=== PATIENT | female | born 1970 | race Caucasian/White ===

== ENCOUNTER 2022-02-27 13:47 | Emergency (ER) | payer OTHER, SELFPAY ==
[2022-02-27 13:59] VITALS: BP 153/107; PULSE 109; RESP 18; O2SAT 99
--- NOTE | 2022-02-27 13:59 | ECG_ITS ---
[facility] Test Date: 2022-02-27 Pat Name: Natalie Whitfield Department: Room: Gender: Female Inside Technical Sales Representative: : 1970 Requested By: Milton Granger Order Number: [id number] Sinan MD: Kelton Francois M.D. Measurements Intervals [place] Rate: 98 P: 50 OK: 159 QRS: 58 QRSD: 84 T: 66 QT: 334 QTc: 428 Interpretive Statements SINUS RHYTHM POSSIBLE RIGHT VENTRICULAR CONDUCTION DELAY [RSR (QR) IN V1/V2] No previous ECG available for comparison Electronically Signed On 02-27-2022 15:17:33 CDT by Kelton Francois M.D. [email or web address]
--- NOTE | 2022-02-27 14:02 | ED_ITS ---
HPI - Abdominal Pain General: Chief Complaint: Abdominal Pain Stated Complaint: abd pain upper left side Time Seen by Provider: 02/27/22 13:59 Source: patient Mode of arrival: ambulatory Limitations: no limitations History of Present Illness: 51-year-old female presents emergency room planing nausea constipation with left upper quadrant abdominal pain for the last week. No fever sweats or chills has a lot of cramping also states she has been very constipated she did have small bowel movement this morning. She noticed dark stools she has been taking large number of NSAIDs for osteoarthritic complaints. She denies any bright red blood per rectum or vomited any blood or any had any coffee-ground emesis. MD elicited complaint: abdominal pain Quality: cramping Radiation: none Exacerbating factors: nothing Relieving factors: nothing Associated Symptoms: Denies anorexia, belching, bloating, change in bowel habits, change in stool character, chills, coffee ground emesis, constipation, GI cramping, diarrhea, dyspepsia, dysuria, excessive flatus, fever(s), heartburn, hematochezia, hematuria, hematemesis, fecal incontinence, loose stools, melena, nausea, poor appetite, syncope and vomiting Review of Systems Const: Denies: fever(s) or chills ENMT: Denies: throat pain, ear or mastoid pain, nasal discharge or nasal con gestion Card: Reports: chest pain; Denies: palpitations, irregular heart rhythm or syncope Resp: Denies: dyspnea, productive cough or non-productive cough GI: Denies: abdominal pain, nausea, vomiting, hematemesis, coffee ground emesis, heartburn, diarrhea, constipation, bloating, GI cramping, belching, excessive flatus, fecal incontinence, change in bowel habits, change in stool character, hematochezia or melena : Denies: flank pain, difficulty voiding, dysuria or hematuria Skin/Breast: Denies: rash or pruritus PFSH ED PFSH: Surgical History History of appendectomy History of delivery History of cholecystectomy History of rhinoplasty Social History Smoking and tobacco status: never smoked Physical Exam Const: GENERAL APPEARANCE: cooperative and comfortable ORIENTATION/CONSCIOUSNESS: Yes awake, Yes oriented to person, Yes oriented to place and Yes oriented to time HENMT: COMMON NORMALS: normocephalic, atraumatic and hearing grossly normal bilaterally HEAD & SCALP: normocephalic and atraumatic Neck/C-Spine: COMMON NORMALS: no JVD Resp: COMMON NORMALS: normal respiratory effort, No retractions, No use of accessory muscles and clear to auscultation bilaterally AUSCULTATION: clear to auscultation bilaterally Cardio: COMMON NORMALS: no JVD, regular rate, regular rhythm and No murmurs present (Cardio) RATE: regular rate RHYTHM: regular rhythm GI: COMMON NORMALS: No hepatosplenomegaly present AUSCULTATION: Yes normoactive bowel sounds PALPATION: Yes Tenderness to palpation present (GI) Details: LUQ, No Guarding due to palpation present (GI) and Yes No hepatosplenomegaly present Extremity: COMMON NORMALS: normal to inspection, capillary refill normal, no clubbing, cyanosis or edema, no calf tenderness and no pedal edema Neuro: SENSORIUM/ORIENTATION: Yes oriented to person, Yes oriented to place and Yes oriented to time Skin: COMMON NORMALS: no rashes or lesions noted GENERAL SKIN EXAM: no rashes or lesions noted Course Vital Signs: Vital signs: Vital Signs Pulse Rate 101 H 02/27/22 17:02 Respiratory Rate 18 02/27/22 19:51 Blood Pressure 149/92 02/27/22 17:02 Pulse Oximetry 98 02/27/22 19:51 MDM - Abdominal Pain Medical Decision Making Soft tissue mass causing gastric outlet obstruction. I discussed with Dr. Braswell. He did not feel this was within his scope of practice nor do we have the appropriate resources at our facility to manage this problem. While he felt he could do the EGD regardless of the findings on EGD biopsy this would have to be resected which was not something he felt could be managed at our facility. Called several other facilities ultimately were able to find a bed at [facility]. Dr. Choudhary will accept the patient and consult surgery. I discussed the findings with the patient and reviewed the labs and imaging. Patient transferred in good condition with an NG in place. Medical Records I reviewed the patient's medical records. Lab Data I reviewed the patient's lab results. : 02/27/22 14:06 02/27/22 13:48 Labs/Radiology: Radiology Impressions Abdomen/Pelvis CT 02/27/22 14:36 IMPRESSION: 1. Marked fluid distention of the stomach with soft tissue mass containing fat obstructing the antrum/pylorus of the stomach. There is marked wall thickening with the fat-containing mass which may be partially intussuscepting. Upper endoscopy recommended to better evaluate the mass. Differential includes a fat- containing tumor/lipoma. Less likely a liposarcoma. Soft tissue mass extends over length of 5.3 cm. There are a few small adjacent lymph nodes which may be reactive or neoplastic. 2. Prior cholecystectomy. 3. No adenopathy. Notified Milton Haney DO at 02/27/2022 3:44 PM. Chest X-Ray 02/27/22 16:52 IMPRESSION: Satisfactory NG tube position. Laboratory Results WBC 12.0 10^3/uL (4.0-10.0) H 02/27/22 14:06 RBC 4.07 10^6/uL (4.1-5.3) L 02/27/22 14:06 Hgb 12.4 g/dL (11.5-15.3) 02/27/22 14:06 Hct 36.4 % (37.0-47.0) L 02/27/22 14:06 MCV 89.4 fl (81-99) 02/27/22 14:06 MCH 30.5 pg (28.0-34.0) 02/27/22 14:06 MCHC 34.1 g/dL (30.0-36.0) 02/27/22 14:06 RDW 12.7 % (12.1-15.1) 02/27/22 14:06 Plt Count 453 10^3/cmm (130-400) H 02/27/22 14:06 MPV 10.4 fL (7.4-10.4) 02/27/22 14:06 Neut % (Auto) 74.7 % 02/27/22 14:06 Lymph % (Auto) 18.2 % 02/27/22 14:06 [place] % (Auto) 5.1 % 02/27/22 14:06 Eos % (Auto) 1.4 % 02/27/22 14:06 Baso % (Auto) 0.4 % 02/27/22 14:06 Neut # (Auto) 8.98 10^3/uL (1.8-7.7) H 02/27/22 14:06 Lymph # (Auto) 2.2 10^3/uL (0.8-4.8) 02/27/22 14:06 [place] # (Auto) 0.6 10^3/uL (0.2-0.9) 02/27/22 14:06 Eos # (Auto) 0.2 10^3/uL (0.0-0.8) 02/27/22 14:06 Baso # (Auto) 0.1 10^3/uL (0.0-0.1) 02/27/22 14:06 Nucleated RBC % (auto) 0 % 02/27/22 14:06 Nucleated RBCs # 0.0 /100WBC 02/27/22 14:06 Sodium Cancelled 02/27/22 14:06 Potassium Cancelled 02/27/22 14:06 Chloride Cancelled 02/27/22 14:06 Carbon Dioxide Cancelled 02/27/22 14:06 Anion Gap Cancelled 02/27/22 14:06 BUN Cancelled 02/27/22 14:06 Creatinine Cancelled 02/27/22 14:06 GFR Calculation Cancelled 02/27/22 14:06 Glucose Cancelled 02/27/22 14:06 Calculated Osmolality Cancelled 02/27/22 14:06 Calcium Cancelled 02/27/22 14:06 Total Bilirubin Cancelled 02/27/22 14:06 AST Cancelled 02/27/22 14:06 ALT Cancelled 02/27/22 14:06 Alkaline Phosphatase Cancelled 02/27/22 14:06 Total Protein Cancelled 02/27/22 14:06 Albumin Cancelled 02/27/22 14:06 Globulin Cancelled 02/27/22 14:06 Lipase Cancelled 02/27/22 14:06 Urine Color Yellow (Yellow) 02/27/22 16:00 Urine Appearance Clear (CLEAR) 02/27/22 16:00 Urine pH 5 (5-7) 02/27/22 16:00 Ur Specific [place] 1.020 (1.005-1.030) 02/27/22 16:00 Urine Protein Neg (Negative) 02/27/22 16:00 Urine Glucose (UA) Norm (Normal) 02/27/22 16:00 Urine Ketones 3+ (Negative) H 02/27/22 16:00 Urine Blood 2+ (Negative) H 02/27/22 16:00 Urine Nitrate Negative (Negative) 02/27/22 16:00 Urine Bilirubin Neg (Negative) 02/27/22 16:00 Urine Urobilinogen Norm mg/dL (Negative) 02/27/22 16:00 Ur Leukocyte Esterase Negative (Negative) 02/27/22 16:00 Urine RBC 0-4 /hpf (0-2) H 02/27/22 16:00 Urine WBC 0-4 /hpf (0-5) H 02/27/22 16:00 Ur Squamous Epith Cells 0-4 /hpf (0-5) H 02/27/22 16:00 Amorphous Sediment Not Reportable 02/27/22 16:00 Urine Bacteria None /hpf (NONE) 02/27/22 16:00 Discharge Plan Discharge Patient Disposition: Xfer Short-Term Hosp Clinical Impression: Gastric outlet obstruction Condition: Stable Referrals: Chuy Hollins DO [Primary Care Provider] - Coding Level of Care Code ED Dress Fitter for Chg Fwd Exam Comprehensive
--- NOTE | 2022-02-27 14:22 | PC.NURSE ---
PT PLACED ON CONTINUOUS NIBP, SPO2, AND CM
[2022-02-27 14:29] LABS: Basophils # 0.1 10^3/uL (0.0-0.1); Basophils % 0.4 %; Eosinophils # 0.2 10^3/uL (0.0-0.8); Eosinophils % 1.4 %; Hematocrit 36.4 % (37.0-47.0); Hemoglobin 12.4 g/dL (11.5-15.3); Lymphocytes # 2.2 10^3/uL (0.8-4.8); Lymphocytes % 18.2 %; Mean Corpuscular HGB Conc 34.1 g/dL (30.0-36.0); Mean Corpuscular Hemoglobin 30.5 pg (28.0-34.0); Mean Corpuscular Volume 89.4 fl (81-99); Mean Platelet Volume 10.4 fL (7.4-10.4); Monocytes # 0.6 10^3/uL (0.2-0.9); Monocytes % 5.1 %; Neutrophils # 8.98 10^3/uL (1.8-7.7); Neutrophils % 74.7 %; Nucleated Red Blood Cells % 0 %; Platelet Count 453 10^3/cmm (130-400); Red Blood Count 4.07 10^6/uL (4.1-5.3); Red Cell Distribution Width 12.7 % (12.1-15.1)
--- NOTE | 2022-02-27 14:36 | CT_ITS ---
WS: [id number] CT ABDOMEN AND PELVIS NONCONTRAST HISTORY: Abdominal pain TECHNIQUE: Imaging performed through the abdomen and pelvis. Coronal and sagittal reformats are submi tted. All CT scans at [facility] use at least one of these dose optimization techniques: auto mated exposure control; mA and/or kV adjustment per patient size (includes targeted exams where dose is matched to clinical indication); or iterative reconstruction. DLP: 1254.24 mGy.cm COMPARISON: None available. Lower thorax: Lung bases are clear. Visualized heart is normal. No hiatal hernia. Liver: Normal size liver. No mass or bile duct dilatation. Gallbladder: Prior cholecystectomy. Pancreas: Normal size and attenuation. Normal pancreatic duct. No pancreatitis or mass. Spleen: Normal. Adrenal glands: Normal. No mass. Right kidney: Normal size kidney with no mass or hydronephrosis. Left kidney: Normal size kidney with obstructing calcifications. Aorta: Mild atherosclerosis abdominal aorta with no aneurysm. No free fluid or free air. GI tract: Appendix is been removed. There is marked distention of the stomach with fluid. Obstruction is to the level of the cyst antrum of the stomach at the antrum there is marked circumferential soft tissue thickening with a fat-containing mass which may be causing an intussusception and adjacent in flammation. There is a high-grade stenosis involving the antrum and pylorus of the stomach. Suspect t here may be a polypoid mass intussuscepted into the antrum. Marked soft tissue thickening. No perfora tion at this time. No small bowel obstruction. There are several small lymph nodes adjacent to the an trum of the stomach and the duodenum which are likely related to the acute process at the stomach ant rum. Abdominal wall: Negative. No hernia. Pelvis: Well-distended urinary bladder. No free fluid. Osseous structures: Unremarkable. CT/CT abdomen pelvis wo con [id number] IMPRESSION: 1. Marked fluid distention of the stomach with soft tissue mass containing fat obstructing the antrum/pylorus of the stomach. There is marked wall thickening with the fat-containing mass which may be partially intussuscepting. Upper end oscopy recommended to better evaluate the mass. Differential includes a fat-con taining tumor/lipoma. Less likely a liposarcoma. Soft tissue mass extends over length of 5.3 cm. There are a few small adjacent lymph nodes which may be react ashley or neoplastic. 2. Prior cholecystectomy. 3. No adenopathy. Notified Milton Haney DO at 02/27/2022 3:44 PM.
[2022-02-27 15:32] VITALS: BP 138/93; O2SAT 98
[2022-02-27 15:49] LABS: Alanine Aminotransferase 24 U/L (0-33); Albumin Level 3.8 g/dL (3.5-5.2); Alkaline Phosphatase 107 IU/L (35-105); Anion Gap 18.1 (5-19); Aspartate Amino Transferase 23 U/L (0-32); Blood Urea Nitrogen 18 mg/dL (6-20); Calcium 9.6 mg/dL (8.5-10.5); Carbon Dioxide 23 mmol/L (22-29); Chloride 99 mmol/L (98-107); Globulin 3.3 g/dL (1.3-4.6); Glomerular Filtration Rate 65.8 mL/min (90-130); Glucose 83 mg/dL (65-115); Lipase 36 U/L (13-60); Osmolality Calculated 283 mOsm/kg (285-295); Potassium 4.1 mmol/L (3.5-5.1); Sodium 136 mmol/L (136-145); Total Bilirubin 0.2 mg/dL (0.15-1.2); Total Protein 7.1 g/dL (6.6-8.7)
[2022-02-27 15:57] VITALS: RESP 16; O2SAT 98
[2022-02-27] MEDS: diphenhydrAMINE 50 mg/mL SDV 1mL IVP (15:57)
[2022-02-27] MEDS: morphine 4 mg/mL SDV 1 mL IVP (15:57)
[2022-02-27] MEDS: ondansetron 2 mg/ML SDV 2 mL 4 MG IVP ×2 (15:57→19:51)
[2022-02-27 16:02] VITALS: BP 129/83; O2SAT 97
--- NOTE | 2022-02-27 16:52 | XRR_ITS ---
PROCEDURE INFORMATION: Exam: XR Chest Exam date and time: 02/27/2022 4:59 PM Age: 51 years old Clinical indication: Device placement; Ng tube; Additional info: Tube placement, ng tube placement TECHNIQUE: Imaging protocol: Radiologic exam of the chest. Views: 1 view. COMPARISON: CT abdomen pelvis con [id number] 02/27/2022 3:22 PM FINDINGS: Tubes, catheters and devices: The nasogastric tube is appropriately positioned with the tip in the stomach, well beyond the diaphragmatic hiatus. Lungs: Lungs are clear. Pleural spaces: There is no pleural effusion or pneumothorax. Heart/Mediastinum: Cardiomediastinal contours are unremarkable. Bones/joints: Bones are unremarkable. XR/XR chest 1V portable [id number] IMPRESSION: Satisfactory NG tube position.
[2022-02-27 17:02] VITALS: BP 149/92; PULSE 101; RESP 12; O2SAT 99
[2022-02-27] MEDS: cetacaine Spray 5 gm Can 1 SPRAY TOPICAL (17:22)
[2022-02-27] MEDS: pantoprazole 40 mg SDV IVP (17:53)
[2022-02-27] MEDS: sodium chloride 0.9% 1,000 ML 999 ML IV ×2 (17:53→19:11)
--- NOTE | 2022-02-27 18:03 | PC.NURSE ---
NG tube placed to suction, intermittent suction not an option on this setup. 600ml alayna colored liquid return, suction turned off.
[2022-02-27 19:10] LABS: Add Urine Microscopic? YES; Bilirubin Urine Neg (Negative); Blood Urine 2+ (Negative); Glucose Urine UA Norm (Normal); Ketones Urine 3+ (Negative); Leukocyte Esterase Urine Negative (Negative); Nitrate Urine Negative (Negative); Protein Urine Neg (Negative); Urine Appearance Clear (CLEAR); Urine Color Yellow (Yellow); Urobilinogen Urine Norm (Negative); pH Urine 5 (5-7)
[2022-02-27 19:11] LABS: Add Urine Culture? No; RBC Urine 0-4 /hpf (0-2); Squamous Epithelial Cell Urine 0-4 /hpf (0-5); WBC Urine 0-4 /hpf (0-5)
[2022-02-27 19:51] VITALS: RESP 18; O2SAT 98
[2022-02-27] MEDS: HYDROmorphone 1 mg/mL INJ 1 mL 0.5 MG IVP (19:51)
== END 2022-02-27 19:55 | disposition short-term general hospital (02) ==
PROVIDERS: Emergency Provider Family Medicine; PCP Family Medicine
DX: K31.1 Adult hypertrophic pyloric stenosis (principal)
CPT/HCPCS: 71045; 74176; 80053; 81001; 83690; 85025; 93005; 96361; 96374; 96375; 96376; 99285; C9113; J1170; J1200; J2270; J2405; J7030

== ENCOUNTER 2023-02-19 22:34 | Emergency (ER) | payer OTHER, SELFPAY ==
--- NOTE | 2023-02-19 22:35 | XRR_ITS ---
PROCEDURE INFORMATION: Exam: XR Right Knee Exam date and time: 02/19/2023 10:50 PM Age: 52 years old Clinical indication: Pain; Knee; Right; Prior surgery; Surgery date: 6+ months; Surgery type: Scope; Additional info: Injury TECHNIQUE: Imaging protocol: Radiologic exam of the right knee. Views: 3 views. COMPARISON: No relevant prior studies available. FINDINGS: Bones/joints: Leal-st-byhhzuij tricompartmental osteoarthritis of the knee. Small to moderate knee joint effusion. Soft tissues: Normal. XR/XR knee RT 3V* [id number] IMPRESSION: 1. Oifb-co-rnyyllxz tricompartmental osteoarthritis of the knee. 2. Small to moderate knee joint effusion.
[2023-02-19 22:39] VITALS: BP 150/97; PULSE 92; RESP 18; TEMP 36.1; O2SAT 96; BMI 25.0
[2023-02-19 22:46] VITALS: BP 134/94; RESP 16; O2SAT 97
--- NOTE | 2023-02-19 22:47 | ED_ITS ---
HPI - Extremity Problem General: Chief complaint: Extremity Injury, Lower Stated complaint: Right knee injury Time Seen by Provider: 02/19/23 22:40 History of Present Illness: 52-year-old female comes in today with injury to the right knee. Patient reports that she was walking into her mother's bedroom when she felt a sudden sharp pain in her right knee. Since then patient has had difficulty with bearing weight to the right knee. Patient does have some noticeable swelling to the anterior knee. Associated symptoms: Deny chest pain Review of Systems General: Reports: 10 or more systems reviewed and unremarkable except in HPI and below Card: Denies: chest pain Resp: Denies: dyspnea Musc: Reports: joint pain (Right knee) PFS ED PFSH: Surgical History History of appendectomy History of delivery History of cholecystectomy History of rhinoplasty Social History Smoking and tobacco status: never smoked Physical Exam Const: COMMON NORMALS: alert HENMT: COMMON NORMALS: normocephalic HEAD & SCALP: normocephalic Neck/C-Spine: COMMON NORMALS: full ROM Resp: COMMON NORMALS: clear to auscultation bilaterally AUSCULTATION: clear to auscultation bilaterally Cardio: COMMON NORMALS: regular rate RATE: regular rate Extremity: RIGHT LOWER EXTREMITY: Yes knee joint (Anterior knee joint swelling, no redness, decreased range of motion due to ) Right knee: Yes inspection, Yes palpation and Yes ROM Neuro: SENSORIUM/ORIENTATION: Yes alert Course Vital Signs: Vital signs: Vital Signs Temperature 97 F L 02/19/23 22:39 Pulse Rate 92 02/19/23 22:39 Respiratory Rate 18 02/19/23 22:39 Blood Pressure 150/97 02/19/23 22:39 Pulse Oximetry 96 02/19/23 22:39 MDM - Extremity (Nontraumatic) Medical Decision Making Patient comes in due to increased pain and discomfort to the right knee. Patient reports no fall. Patient reports that she was walking across the floor and had sudden onset of pain and discomfort. Patient does have a history of prior arthroscopy to the knee for meniscal injury 35 to 40 years ago. On exam we note anterior swelling of the knee. Differential diagnosis includes but not limited to meniscal injury, osteoarthritis, knee joint effusion, fracture. X- ray had no fracture. Mild to moderate degenerative joint disease noted. Reviewed exam with patient recommended treatment and need for follow-up. Patient reported understanding. And agreed with plan. Case management was requested to have patient follow-up with orthopedist due to swelling in the knee. Discharge Plan Discharge Patient Disposition: Home Clinical Impression: Effusion of knee joint right Condition: Stable Prescriptions: New hydrocodone-acetaminophen 5-325 mg tablet 1 tab PO Q8H PRN (Reason: pain (scale score 7-10)) Qty: 10 0RF No Action levocetirizine [Xyzal] 5 mg tablet 10 mg PO QAM cefdinir 300 mg capsule 300 mg PO BID 5 Days Qty: 10 0RF prednisone 10 mg tablet 10 mg PO DAILY 5 Days Qty: 5 0RF fluconazole [Diflucan] 150 mg tablet 150 mg PO ONCE Qty: 1 0RF Cranberry Plus Vitamin C 140-100 mg Capsule 1 cap PO QAM Tylenol Ex Str Rapid Release 500 mg Tablet 1,000 mg PO QAM ibuprofen 200 mg Tablet 800 mg PO QAM Excedrin Extra Strength 250-250-65 mg Tablet 2 tab PO DAILY@12 Protonix 20 mg tablet,delayed release (DR/EC) 20 mg PO QAM Discharge Orders: Discharge ED (Routine); Ordered 02/19/23 Ordered By: iVpul Quintanilla Discharge Diet: Usual diet Discharge Activity: Increase activity as tolerated Patient Instructions: Knee Pain (ED) Activity Restrictions/Additional Instructions: Activity as tolerated. Use acetaminophen and ice to the knee for pain and discomfort. You may try heat to see if that would work better for your pain relief. Use hydrocodone for severe pain. Use knee immobilizer for the next 2 days and then go without to see if you can start movement of the knee with range of motion. Use crutches until you can bear weight comfortably. Follow-up with primary care as needed. Case management will contact you regarding follow-up appointment with orthopedics for further evaluation and treatment. Coding Level of Care Code ED Vending Machine Refiller for Nancy Coulter
[2023-02-19] MEDS: HYDROcodone-acetaminophen 7.5-325 mg Tablet 1 TAB PO (23:06)
[2023-02-19 23:57] VITALS: BP 160/96; RESP 16; O2SAT 97
--- NOTE | 2023-02-20 09:35 | PC.SOCIAL ---
Addendum entered by Cristal Mcgovern 03/07/23 14:23: Patient had a follow up appointment scheduled with ortho - patient did attend appointment. Original Note: Ortho Referral Referral sent to ortho at this time. Clinic to contact patient with appt date/time.
== END 2023-02-20 00:02 | disposition home or self-care (01) ==
PROVIDERS: Emergency Provider Nurse Practitioner Family
DX: M25.461 Effusion, right knee (principal)
CPT/HCPCS: 29530; 73562; 99283

== ENCOUNTER 2023-03-14 06:57 | Outpatient (CLI) | payer OTHER, SELFPAY ==
--- NOTE | 2023-03-14 07:15 | MR_ITS ---
WS: [id number] MRI RIGHT KNEE NONCONTRAST TECHNIQUE: Axial PD, coronal PD fat sat, coronal PD, sagittal PD, and sagittal PD fat-sat images obta ined. CLINICAL INFORMATION: pain COMPARISON: None. FINDINGS: Moderate to large joint effusion. Acute appearing fracture involving the lateral tibial plateau with visualized fracture line extending to the lateral cortex and lateral articular surface. This extends to the posterior cortex. Associated diffuse edema. No significant depression of the tibial plateau. Normal ACL and PCL. 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 Chronic thinning of the medial meniscus. Chronic blunting of the posterior horn medial meniscus. No acute ap pearing meniscal tears. Medial and lateral collateral ligaments appear intact. Normal popliteus. Mild soft tissue edema about the joint line. MR/MR knee RT wo con* [id number] IMPRESSION: 1. Acute nondisplaced fracture involving the lateral tibial plateau with diffu se edema described above. No significant depression. 2. Moderate to large joint effusion. 3. 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 4. Chronic thinning of the medial meniscus. No acute appearing meniscal tears. 5. ACL and PCL appear intact. Outbridge grading:
== END 2023-03-14 06:58 | disposition home or self-care (01) ==
PROVIDERS: PCP Nurse Practitioner; Visit Provider Nurse Practitioner Family
DX: M22.41 Chondromalacia patellae, right knee (principal); M25.561 Pain in right knee; M25.461 Effusion, right knee
CPT/HCPCS: 73721

== ENCOUNTER → 2023-04-03 08:05 | Outpatient (BNVA) | payer OTHER, SELFPAY | PROVIDERS: Visit Provider Nurse Practitioner Family | DX: S82.141A Displaced bicondylar fracture of right tibia, initial encounter for closed fracture (principal); X58.XXXA Exposure to other specified factors, initial encounter | CPT/HCPCS: 73562 ==

== ENCOUNTER → 2023-04-24 07:50 | Outpatient (BNVA) | payer OTHER, SELFPAY | PROVIDERS: PCP Family Medicine; Visit Provider Nurse Practitioner Family | DX: S82.141A Displaced bicondylar fracture of right tibia, initial encounter for closed fracture (principal); X58.XXXA Exposure to other specified factors, initial encounter | CPT/HCPCS: 73562 ==

== ENCOUNTER 2023-04-28 12:41 | Outpatient (CLI) | payer OTHER, SELFPAY | END 2023-04-28 12:42 | disposition home or self-care (01) | LOC: SPT 12:42 | PROVIDERS: PCP Family Medicine; Visit Provider Nurse Practitioner Family | DX: Z46.89 Encounter for fitting and adjustment of other specified devices (principal); M25.561 Pain in right knee | CPT/HCPCS: L1832 ==

== ENCOUNTER → 2023-05-08 07:55 | Outpatient (BNVA) | payer OTHER, SELFPAY | PROVIDERS: PCP Family Medicine; Visit Provider Nurse Practitioner Family | DX: S82.141A Displaced bicondylar fracture of right tibia, initial encounter for closed fracture (principal); X58.XXXA Exposure to other specified factors, initial encounter | CPT/HCPCS: 73562 ==

== ENCOUNTER 2023-05-19 10:59 | Outpatient (CLI) | payer OTHER, SELFPAY ==
--- NOTE | 2023-05-19 11:00 | CT_ITS ---
WS: [id number] CT SINUSES TECHNIQUE: Noncontrast CT of the paranasal sinuses with coronal and sagittal reformatted images. CLINICAL INFORMATION: chronic sinnusitus COMPARISON: None. DLP: 485.[address] scans at [facility] use at least one of these dose optimization techniques: automated e xposure control; mA and/or kV adjustment per patient size (includes targeted exams where dose is matc hed to clinical indication); or iterative reconstruction. FINDINGS: Mild LEFT RIGHT nasal septal deviation measuring 2.5 mm. Prior postoperative changes bilateral maxill shahrzad antrostomies with uncinectomies and ethmoidectomies. Paranasal sinuses are well aerated. Mastoid air cells are well aerated. Mild mucosal thickening in the ethmoid air cells. Frontal sinuses are wel l aerated. Sphenoid sinuses are well aerated. Sphenoid ostia are patent. Normal posterior nasopharynx and parapharyngeal fat. IMPRESSION: 1. Mild LEFT RIGHT nasal septal deviation measuring 2.5 mm. 2. Prior postoperative changes bilateral maxillary antrostomies with uncinectomies and ethmoidectomi es. 3. Paranasal sinuses are well aerated. 4. Mastoid air cells are well aerated.
== END 2023-05-19 11:00 | disposition home or self-care (01) ==
LOC: RAD 11:02
PROVIDERS: PCP Family Medicine; Visit Provider Otolaryngology
DX: J32.9 Chronic sinusitis, unspecified (principal); J34.2 Deviated nasal septum; Z98.890 Other specified postprocedural states
CPT/HCPCS: 70486

== ENCOUNTER → 2023-05-20 08:56 | Outpatient (BNVA) | payer OTHER, SELFPAY | PROVIDERS: PCP Family Medicine; Visit Provider Family Medicine | DX: K44.9 Diaphragmatic hernia without obstruction or gangrene (principal); H60.91 Unspecified otitis externa, right ear; J32.9 Chronic sinusitis, unspecified; K31.1 Adult hypertrophic pyloric stenosis | CPT/HCPCS: 80053; 80061; 84439; 84443; 85025 ==

== ENCOUNTER → 2023-05-23 13:49 | Outpatient (BNVA) | payer OTHER, SELFPAY | PROVIDERS: PCP Family Medicine; Visit Provider Family Medicine | DX: K44.9 Diaphragmatic hernia without obstruction or gangrene (principal) | CPT/HCPCS: 85025 ==

== ENCOUNTER → 2023-05-27 10:03 | Outpatient (BNVA) | payer OTHER, SELFPAY | PROVIDERS: PCP Family Medicine; Visit Provider Nurse Practitioner Family | DX: R05.9 Cough, unspecified (principal); U07.1 COVID-19 | CPT/HCPCS: 87400; 87426 ==

== ENCOUNTER → 2023-06-10 13:48 | Outpatient (BNVA) | payer OTHER, SELFPAY | PROVIDERS: PCP Family Medicine; Visit Provider Physician Assistant | DX: S82.141A Displaced bicondylar fracture of right tibia, initial encounter for closed fracture (principal); X58.XXXA Exposure to other specified factors, initial encounter; M94.261 Chondromalacia, right knee | CPT/HCPCS: 73560; 73565 ==

== ENCOUNTER → 2023-08-01 10:38 | Outpatient (BNVA) | payer OTHER, SELFPAY | PROVIDERS: PCP Family Medicine; Visit Provider Nurse Practitioner | DX: R39.9 Unspecified symptoms and signs involving the genitourinary system (principal); N30.01 Acute cystitis with hematuria; B02.9 Zoster without complications | CPT/HCPCS: 81000 ==

== ENCOUNTER → 2023-08-19 14:44 | Outpatient (BNVA) | payer OTHER, SELFPAY | PROVIDERS: PCP Family Medicine; Visit Provider Nurse Practitioner Family | DX: R68.89 Other general symptoms and signs (principal); R05.9 Cough, unspecified | CPT/HCPCS: 71046; 80053; 81000; 81003; 85025; 87400; 87426 ==

== ENCOUNTER → 2023-10-07 14:49 | Outpatient (BNVA) | payer OTHER, SELFPAY | PROVIDERS: PCP Family Medicine; Visit Provider Nurse Practitioner Family | DX: R05.9 Cough, unspecified (principal); R68.89 Other general symptoms and signs | CPT/HCPCS: 87400; 87426 ==

== ENCOUNTER → 2023-10-30 11:26 | Outpatient (BNVA) | payer OTHER, SELFPAY | PROVIDERS: PCP Family Medicine; Visit Provider Family Medicine | DX: R35.0 Frequency of micturition (principal) | CPT/HCPCS: 81000 ==

== ENCOUNTER → 2024-05-28 10:55 | Outpatient (BNVA) | payer SELFPAY | PROVIDERS: PCP Family Medicine; Visit Provider Family Medicine | DX: J81.1 Chronic pulmonary edema (principal); D64.9 Anemia, unspecified; J90 Pleural effusion, not elsewhere classified; I70.90 Unspecified atherosclerosis; Q25.46 Tortuous aortic arch; R06.02 Shortness of breath | CPT/HCPCS: 71046; 80053; 82728; 83550; 84439; 84443; 85025 ==

== ENCOUNTER → 2024-06-16 11:08 | Outpatient (BNVA) | payer SELFPAY | PROVIDERS: PCP Family Medicine; Visit Provider Family Medicine | DX: E87.6 Hypokalemia (principal) | CPT/HCPCS: 80048 ==

== ENCOUNTER → 2024-09-21 10:24 | Outpatient (BNVA) | payer SELFPAY | PROVIDERS: PCP Family Medicine; Visit Provider Internal Medicine Cardiovascular Disease | DX: I48.91 Unspecified atrial fibrillation (principal) | CPT/HCPCS: 93005 ==

== ENCOUNTER → 2024-09-27 08:36 | Outpatient (BNVA) | payer SELFPAY | PROVIDERS: PCP Family Medicine; Visit Provider Internal Medicine Cardiovascular Disease | DX: E61.1 Iron deficiency (principal); D64.9 Anemia, unspecified; I48.91 Unspecified atrial fibrillation | CPT/HCPCS: 80048; 80162 ==

== ENCOUNTER → 2024-11-19 15:15 | Outpatient (BNVA) | payer SELFPAY | PROVIDERS: PCP Family Medicine; Visit Provider Family Medicine | DX: R39.9 Unspecified symptoms and signs involving the genitourinary system (principal) | CPT/HCPCS: 81000 ==

== ENCOUNTER 2024-12-31 15:13 | Outpatient (CLI) | payer MEDICAID, SELFPAY ==
--- NOTE | 2024-12-31 15:00 | USCV_ITS ---
Natalie Whitfield Age: 54 Gender: F : 1970 Exam Date: 12/31/2024 15:27 Ordering Phys: Yogi Alberto MD ([email or web address]) Technologist: Enrique Edmonds Exam Location: [facility] [place] Indication: start digoxin BP: 98 / 72 HR: 64 Rhythm: Sinus Technical Quality: Adequate MEASUREMENTS (Male / Female) Normal Values 2D ECHO LVOT Diameter 2.0 cm LV Ejection Fraction MOD 2C 81.9 % LV Ejection Fraction 2C AL 82.2 % LA Diameter 3.1 cm RA Systolic Volume 4C AL 28.9 ml RA Systolic Volume 4C MOD 27.9 ml LA Sys Volume AL 28.3 cm cubed LA Sys Volume Index AL 17.8 cm cubed/m squared Aorta at Sinotubular Diameter 2.9 cm IVC Diameter 1.8 cm M-MODE LA Ao Ratio MM 1.0 AV Cusp Separation MM 1.6 cm DOPPLER AV Peak Velocity 132.0 cm/s LVOT Peak Velocity 102.0 cm/s AV Area Cont Eq vti 2.7 cm squared AV Area Cont Eq pk 2.6 cm squared MV Peak Velocity 93.0 cm/s MV Area PHT 8.5 cm squared Mitral E to A Ratio 0.7 TV Peak Velocity 274.0 cm/s TR Peak Velocity 298.0 cm/s TR Peak Gradient 35.5 mmHg TR Mean Velocity 213.0 cm/s TR Mean Gradient 21.0 mmHg TR Velocity Time Integral 78.7 cm PV Peak Velocity 93.0 cm/s RV Ejection Time 0.3 s FINDINGS Left Ventricle Normal left ventricular size, systolic function and wall thickness, with no regional wall motion abnormalities. Left ventricular ejection fraction is estimated at 60 %. Grade I/IV diastolic dysfunction (abnormal relaxation filling pattern), normal to mildly elevated filling pressures. Right Ventricle The right ventricle is normal in size and function. Right Atrium The right atrium is normal in size. Left Atrium The left atrium is normal in size. Mitral Valve Thickened mitral valve. No mitral valve stenosis. Trace mitral valve regurgitation. Aortic Valve Moderate aortic valve calcification. No aortic valve stenosis. Trace aortic valve regurgitation. Tricuspid Valve Structurally normal tricuspid valve without significant stenosis or regurgitation. Pulmonary artery systolic pressure is normal. Pulmonic Valve Structurally normal pulmonic valve without significant stenosis. There is no pulmonic regurgitation. Pericardium Normal pericardium without effusion. Aorta Normal ascending aorta dimension. IVC The inferior vena cava appears normal. CONCLUSIONS Normal left ventricular size, systolic function and wall thickness, with no regional wall motion abnormalities. Left ventricular ejection fraction is estimated at 60 %. Grade I/IV diastolic dysfunction (abnormal relaxation filling pattern), normal to mildly elevated filling pressures. Moderate aortic valve calcification. No aortic valve stenosis. Trace aortic valve regurgitation. There is no pericardial effusion. Right atrial pressure is around 5 mm of mercury. Yogi Alberto MD (Electronically Signed) Final Date: 16 Jan 2025 22:13 S
== END 2024-12-31 15:14 | disposition home or self-care (01) ==
PROVIDERS: PCP Family Medicine; Visit Provider Internal Medicine Cardiovascular Disease
DX: R00.2 Palpitations (principal); R00.0 Tachycardia, unspecified; R93.1 Abnormal findings on diagnostic imaging of heart and coronary circulation; I05.9 Rheumatic mitral valve disease, unspecified; I35.8 Other nonrheumatic aortic valve disorders
CPT/HCPCS: 93306

== ENCOUNTER → 2025-03-28 12:14 | Outpatient (BNVA) | payer MEDICAID, SELFPAY | PROVIDERS: PCP Family Medicine; Visit Provider Nurse Practitioner Family | DX: R00.0 Tachycardia, unspecified (principal) | CPT/HCPCS: 36415; 80162 ==

== ENCOUNTER 2025-04-13 12:08 | Outpatient (CLI) | payer MEDICAID, SELFPAY ==
--- NOTE | 2025-04-13 | ECG_ITS ---
[facility] 2025-[facility]-13 Pat Name: Natalie Whitfield Department: Room: Gender: Female [employer] Attendant: : 1970 Requested By: Lashell Owens Order Number: [id number] Menon MD: Familia Marcum M.D. Interpretive Statements EXERCISE STRESS TEST EXERCISE DATA: The patient was exercised by Rachid protocol. Baseline heart rate was 95 beats per minute. Baseline blood pressure was 107/78 millimeters of mercury. Maximal predicted heart rate was 164 beats per minute. Maximum heart rate achieved was 142 which was 86% of the maximum predicted heart rate. Maximum blood pressure was 144/81 millimeters of mercury. Total exercise time was 5 minutes and 55 seconds. Maximum METs achieved was 4.2. The reason for ending the test was maximal effort achieved. The patient complained of shortness of breath during the stress test, which then resolved at the end of the test. ELECTROCARDIOGRAM: BASELINE: Showed sinus tachycardia, no significant ST-T changes at the baseline noted. [] EXERCISE: At the peak exercise level, [] No significant ST-T changes suggestive of ischemia noted. [] RECOVERY: During the recovery period, heart rate dropped appropriately. No significant ST-T changes in the recovery suggestive of ischemia noted. [] CONCLUSION: 1. Exercise capacity is poor 2. Heart rate response was appropriate 3. Blood pressure response was appropriate 4. Symptoms not suggestive of ischemia. 5. Stress test is not indicative of ischemia. Electronically Signed On 04-17-2025 23:02:49 CDT by Familia Marcum M.D. [email or web address]
[2025-04-13 12:35] VITALS: BMI 20.9
[2025-04-13 12:48] VITALS: BP 101/70; PULSE 96
== END 2025-04-13 12:09 | disposition home or self-care (01) ==
LOC: CDL 12:10
PROVIDERS: PCP Family Medicine; Visit Provider Nurse Practitioner Family
DX: R07.9 Chest pain, unspecified (principal); R06.02 Shortness of breath; R00.0 Tachycardia, unspecified
CPT/HCPCS: 93017

== ENCOUNTER 2025-07-12 11:20 | Outpatient (CLI) | payer MEDICAID, SELFPAY ==
--- NOTE | 2025-07-12 11:30 | XRR_ITS ---
PROCEDURE INFORMATION: Exam: XR Thoracic Spine Exam date and time: 07/12/2025 12:02 PM Age: 55 years old Clinical indication: Pain in thoracic spine; PT states she has a portrusion midback w/ numbness down both arms x 3-4 months. ; Additional info: Back pain TECHNIQUE: Imaging protocol: Radiologic exam of the thoracic spine. Views: 3 views. COMPARISON: CR XR chest 2V* [id number] 05/28/2024 11:04 AM FINDINGS: Bones/joints: Osteopenia. Mild thoracolumbar curve. Mild compression deformity of 2 mid to lower thoracic vertebral bodies, a new finding from 05/28/2024. Soft tissues: Unremarkable. Vasculature: Atherosclerotic vascular disease. XR/XR thoracic spine 3V* [id number] IMPRESSION: Mild compression deformity of 2 mid to lower thoracic vertebral bodies (possibly T8 and T9), a new finding from 05/28/2024.
--- NOTE | 2025-07-12 11:30 | XRR_ITS ---
PROCEDURE INFORMATION: Exam: XR Cervical Spine Exam date and time: 07/12/2025 12:02 PM Age: 55 years old Clinical indication: Neck pain; PT states she has a portrusion midback w/ numbness down both arms x 3-4 months. ; Additional info: Chronic pain, thoracic region TECHNIQUE: Imaging protocol: Radiologic exam of the cervical spine. Views: 2 or 3 views. COMPARISON: CR XR chest 2V* [id number] 05/28/2024 11:04 AM FINDINGS: Bones/joints: Normal. No acute fracture. Normal alignment. Facet arthropathy. Soft tissues: Unremarkable. Vasculature: Atherosclerotic vascular disease. XR/XR cervical spine 3V* [id number] IMPRESSION: No acute osseous abnormality.
== END 2025-07-12 11:21 | disposition home or self-care (01) ==
LOC: RAD 11:22
PROVIDERS: PCP Family Medicine; Visit Provider Family Medicine
DX: M51.24 Other intervertebral disc displacement, thoracic region (principal); M54.9 Dorsalgia, unspecified; G89.29 Other chronic pain; I70.90 Unspecified atherosclerosis; M85.88 Other specified disorders of bone density and structure, other site; M43.8X4 Other specified deforming dorsopathies, thoracic region
CPT/HCPCS: 72040; 72072

== ENCOUNTER 2025-07-25 14:18 | Outpatient (RCR) | payer MEDICAID, SELFPAY | END 2025-07-31 23:59 | disposition home or self-care (01) | LOC: GPT 14:18 | PROVIDERS: PCP Family Medicine; Visit Provider Family Medicine | DX: M54.9 Dorsalgia, unspecified (principal); G89.29 Other chronic pain | CPT/HCPCS: 97161 ==

== ENCOUNTER 2025-08-30 08:06 | Outpatient (RCR) | payer MEDICAID, SELFPAY | END 2025-08-31 23:59 | disposition home or self-care (01) | LOC: GPT 08:06 | PROVIDERS: PCP Family Medicine; Visit Provider Family Medicine | DX: M54.9 Dorsalgia, unspecified (principal); G89.29 Other chronic pain | CPT/HCPCS: 97110; 97112; 97140 ==